=== PATIENT | female | born 2000 | race Caucasian/White ===

== ENCOUNTER 2022-02-17 15:47 | Emergency (ER) | payer OTHER ==
[2022-02-17 15:55] VITALS: BP 147/73; O2SAT 92
[2022-02-17] MEDS ORDERED: DUONEB 0.5-3 MG/3 ml Neb IH ONE ×2 (15:56→16:04)
[2022-02-17] MEDS ORDERED: PULMICORT 0.5 MG/2 ML RESPULES IH ONE (15:58)
--- NOTE | 2022-02-17 16:05 | ERPHSYRPT ---
- History of Present Illness Time Seen by Provider: 02/17/22 16:04 Source: patient Exam Limitations: no limitations Patient Subjective Stated Complaint: Pt states "I started to get short of breath last night and I have this cough. I have been taking nebulizer treatments every hour today." Triage Nursing Assessment: Pt presented alert and oriented X 3, skin pwd. Pt ambulates with a slow gait, able to speak in 5 to 6 word sentences. PT tachypneic. Physician History: Pt states "I started to get short of breath last night and I have this cough. I have been taking nebulizer treatments every hour today." Timing/Duration: yesterday Activities at Onset: none Severity of Dyspnea-Max: moderate Severity of Dyspnea-Current: moderate Possible Cause: frequent episodes Modifying Factors: Improves With: albuterol nebulizer, coughing Associated Symptoms: cough, wheezing, No fever, No loss of appetite Allergies/Adverse Reactions: salt on peanuts Allergy (Severe, Uncoded 02/17/22 15:55) Swelling Home Medications: Albuterol Sulfate [Albuterol Sulfate Hfa] 8.5 gm IH DAILY 02/17/22 [History] Cetirizine HCl [Zyrtec] 10 mg PO DAILY 02/17/22 [History] Fluticasone/Umeclidin/Vilanter [Trelegy Ellipta 200-62.5-25] 1 unit IH DAILY 02/17/22 [History] Tiotropium [place] [Spiriva Respimat] 1 unit IH DAILY 02/17/22 [History] Hx Tetanus, Diphtheria Vaccination/Date Given: No Hx Influenza Vaccination/Date Given: No Hx Pneumococcal Vaccination/Date Given: No Immunizations Up to Date: Yes Travel Risk - International Travel Have you traveled outside of the country in past 3 weeks: No - Coronavirus Screening Are you exhibiting any of the following symptoms?: Yes Symptoms: Cough: New Onset, Shortness of Breath Close contact with a COVID-19 positive Pt in past 14-21 Days: No - Vaccine Status Have you recieved a Covid-19 vaccination: Yes 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: [employer] - Vaccination Dates Date of 2cond Vaccination (if applicable): 2020 - Review of Systems Constitutional: No Fever, No Chills Eyes: No Symptoms Ears, Nose, & Throat: No Symptoms Respiratory: Cough, Dyspnea, Dyspnea on Exertion (TUCKER), Wheezing Cardiac: No Chest Pain, No Edema, No Syncope Abdominal/Gastrointestinal: No Abdominal Pain, No Nausea, No Vomiting, No Diarrhea Genitourinary Symptoms: No Dysuria Musculoskeletal: No Back Pain, No Neck Pain Skin: No Rash Neurological: No Dizziness, No Focal Weakness, No Sensory Changes Psychological: No Symptoms Endocrine: No Symptoms All Other Systems: Reviewed and Negative - Past Medical History Pertinent Past Medical History: Yes Respiratory History: Asthma - Past Surgical History Past Surgical History: Yes - Social History Smoking Status: Current every day smoker How long have you smoked: years Exposure to second hand smoke: Yes Drug Use: none Patient Lives Alone: No - Female History Hx Last Menstrual Period: 01/31/2022 Hx Now: No - Nursing Vital Signs Nursing Vital Signs: Initial Vital Signs Temperature 97.8 F 02/17/22 15:47 Pulse Rate 121 H 02/17/22 15:47 Respiratory Rate 28 H 02/17/22 15:47 Blood Pressure 147/73 02/17/22 15:47 O2 Sat by Pulse Oximetry 94 L 02/17/22 15:47 Pain Scale Pain Intensity 8 - Physical Exam General Appearance: no apparent distress, alert Eye Exam: PERRL/EOMI Neck Exam: normal inspection, supple Respiratory Exam: diminished breath sounds, accessory muscle use, wheezing Cardiovascular/Chest Exam: normal heart sounds, regular rate/rhythm Abdominal/Gastrointestinal Exam: soft, No tenderness, No distention, No mass Extremity Exam: non-tender, normal range of motion, normal inspection, no calf tenderness, no pedal edema Neurologic Exam: alert, oriented x 3, cooperative, director independent II-XII nml as tested, sensation nml, No motor deficits Skin Exam: normal color, warm, No dry SpO2 Interpretation: borderline oxygenation SpO2: 92 O2 Delivery: Room Air - Course Nursing assessment & vital signs reviewed: Yes - Radiology Exams Chest X-ray Interpretation: Reviewed by me Ordered Tests: Active Orders 24 hr Category Date Time Status Oxygen-ED Only Nasal Cannula 2 lpm Care 02/17/22 15:56 Active CHEST 2 VIEWS (PA AND LAT) Stat Exams 02/17/22 15:56 Taken CBC W DIFF Stat Lab 02/17/22 16:05 Completed CMP Stat Lab 02/17/22 16:05 Completed Respiratory Therapy Assessment DAILY RT 02/17/22 16:22 Active Medication Summary Discontinued Medications Generic Name Dose Route Start Last Admin Trade Name Yajaira PRN Reason Stop Dose Admin Albuterol/Ipratropium 3 ml 02/17/22 15:56 02/17/22 16:05 Ipratropium/Albuterol Sulfate 3 Ml Ampul.Neb IH 02/17/22 15:57 3 ml STAT ONE Administration Albuterol/Ipratropium Confirm 02/17/22 16:04 Ipratropium/Albuterol Sulfate 3 Ml Ampul.Neb Administered 02/17/22 16:05 Dose 3 ml IH .STK-MED ONE Budesonide 0.5 mg 02/17/22 15:58 02/17/22 16:05 Budesonide 0.5 Mg/2 Ml Ampul.Neb. IH 02/17/22 15:59 0.5 mg ONCE ONE Administration Ceftriaxone Sodium 1,000 mg 02/17/22 16:26 Ceftriaxone Sodium 1000 Mg Inj Vial IM 02/17/22 16:27 STAT ONE Methylprednisolone Sodium 0 mg 02/17/22 16:27 Succinate 125 mg/ Sterile IM 02/17/22 16:28 Water 2 ml STAT ONE Lab/Rad Data: Laboratory Result Diagrams 02/17/22 16:05 02/17/22 16:05 Laboratory Results 02/17/22 02/17/22 Range/Units 16:05 16:05 WBC 11.9 H (4.0-10.5) x10^3/uL RBC 4.83 (4.1-5.4) x10^6/uL Hgb 13.3 (12.0-16.0) g/dL Hct 41.5 (35-47) % MCV 85.9 (78-100) fL MCH 27.5 (26-32) pg MCHC 32.0 (32-36) g/dL RDW 14.4 H (11.5-14.0) % Plt Count 295 (150-450) x10^3/uL MPV 9.8 (7.5-11.0) fL Gran % 68.2 H (36.0-66.0) % Immature Gran % (Auto) 0.6 H (0.00-0.4) % Nucleat RBC Rel Count 0.0 (0.00-0.1) % Eos # (Auto) 0.65 H (0-0.5) x10^3/uL Immature Gran # (Auto) 0.07 H (0.00-0.03) x10^3u/L Absolute Lymphs (auto) 1.83 (1.0-4.6) x10^3/uL Absolute Monos (auto) 1.19 (0.0-1.3) x10^3/uL Absolute Nucleated RBC 0.00 (0.00-0.01) x10^3u/L Lymphocytes % 15.3 L (24.0-44.0) % Monocytes % 10.0 (0.0-12.0) % Eosinophils % 5.4 H (0.00-5.0) % Basophils % 0.5 (0.0-0.4) % Absolute Granulocytes 8.13 H (1.4-6.9) x10^3/uL Basophils # 0.06 (0-0.4) x10^3/uL Sodium 139 (137-145) mmol/L Potassium 3.9 (3.5-5.1) mmol/L Chloride 108 H (98-107) mmol/L Carbon Dioxide 23 (22-30) mmol/L Anion Gap 11.5 (5-15) MEQ/L BUN 6 L (7-17) mg/dL Creatinine 0.64 (0.52-1.04) mg/dL Estimated GFR > 60.0 ML/MIN Glucose 98 (74-106) mg/dL Calcium 9.0 (8.4-10.2) mg/dL Total Bilirubin 0.40 (0.2-1.3) mg/dL AST 19 (14-36) U/L ALT 19 (0-35) U/L Alkaline Phosphatase 86 (38-126) U/L Serum Total Protein 6.7 (6.3-8.2) g/dL Albumin 4.2 (3.5-5.0) g/dL - Progress Progress: improved Air Movement: good Blood Culture(s) Obtained: No Antibiotics given: Yes Counseled pt/family regarding: lab results, diagnosis, need for follow-up, rad results - Departure Departure Disposition: Home Clinical Impression: Bronchitis Acute asthma exacerbation Qualifiers: Asthma severity: moderate Asthma persistence: unspecified Qualified Code(s): J45.901 - Unspecified asthma with (acute) exacerbation Condition: Stable Critical Care Time: Yes Critical Care Time(excluding separately billable procedures): Critical 30-74 mins Referrals: NEHEMIAH GUTIÉRREZ, [employer]IC [Primary Care Provider] - Follow Up with PCP/3 days Instructions: Asthma, Adult (DC), Shortness of Breath (Dyspnea) (DC) Additional Instructions: Discharge/Care Plan YESIKA FRAZIER was seen on 02/17/22 in the Emergency Room. The patient was counseled regarding Diagnosis,Lab results, Imaging studies, need for follow up and when to return to the Emergency Room. Prescriptions given: Discharge Note I have spoken with the patient and/or caregivers. I have explained the patient's condition, diagnosis and treatment plan based on the information available to me at this time. I have answered the patient's and/or caregiver's questions and addressed any concerns. The patient and/or caregivers have as good understanding of the patient's diagnosis, condition and treatment plan as can be expected at this point. The vital signs have been stable. The patient's condition is stable and appropriate for discharge from the emergency department. The patient will pursue further outpatient evaluation with the primary care physician or other designated or consulting physician as outlined in the discharge instructions. The patient and/or caregivers are agreeable to this plan of care and follow-up instructions have been explained in detail. The patient and/or caregivers have received these instruction. The patient/and or caregivers are aware that any significant change in condition or worsening of symptoms should prompt an immediate return to this or the closest emergency department or call 911. YESIKA FRAZIER was seen on 02/17/22 n the Emergency Room. At that time you were treated for an emergent condition, during your visit Laboratory, Radiology and/or other procedures may have been ordered. It is very important that you follow-up with your Primary Care Physician NEHEMIAH GUTIÉRREZ within the next 24- 48 hours to review your Emergency Room visit and the final results of testing that was ordered. Some test results such as Urine Cultures, Blood Cultures, and other cultures if ordered will not be finalized for 24-48 hours. If you do not have a Primary Care Provider please call the medical records department at [phone] to obtain a copy of your results or you may sign into our patient portal to obtain these results by visiting us @ [email or web address] and completing the following steps: 1. Click on the Patient Portal link 2. Click the Patient Self Enrollment Link to complete the enrollment form and entering your 3. Once the enrollment form is completed you will receive an email with a temporary ID and password at the email address you provided. 4. Next choose a user name and password. Your user name must be at least 4 characters long and your password must be at least 4 characters long. 5. Choose a security question from the list and provide your answer to the question. If you already have signed into the Health Portal you may access your Health Care Information 04/11 by the following steps: 1. Login to our website @ [email or web address] 2. Enter your original user name and password. FAQS The [facility] Health Portal is an online tool that contains your Lab Results, Radiology Reports, Visit History, Discharge Instructions and Health Summary Lab and Radiology Results will not be available for 72 hours on the portal. The Portal is a secure site, passwords are encryted and URLs are re-written so they cannot be copied and pasted. You and authorized family members are the only ones who can access your Portal. Also there is a timeout feature that protects your information if you leave the Portal page open. If you have technical difficulty please use the Contact Us link on the page this will allow you to submit any questions you have regarding the Portal or you may contact the Medical Record Department at [phone]. Prescriptions: Azithromycin [Azithromycin 250 mg Pack] 250 mg PO UD #6 tablet Methylprednisolone Packet [Medrol Dosepack] 4 mg PO UD #21 packet
[2022-02-17 16:15] LABS: Absolute Neutrophil Ct (ANC) 8.13 x10^3/uL (1.4-6.9); Basophil (Absolute #) 0.06 x10^3/uL (0-0.4); Eosinophil % 5.4 % (0.00-5.0); Eosinophil (Absolute #) 0.65 x10^3/uL (0-0.5); Hematocrit 41.5 % (35-47); Hemoglobin 13.3 g/dL (12.0-16.0); Lymphocyte (Absolute #) 1.83 x10^3/uL (1.0-4.6); Lymphocytes % 15.3 % (24.0-44.0); Mean Cell Volume 85.9 fL (78-100); Mean Corpuscular Hemoglobin 27.5 pg (26-32); Mean Platelet Volume 9.8 fL (7.5-11.0); Monocyte (Absolute #) 1.19 x10^3/uL (0.0-1.3); Neutrophil % 68.2 % (36.0-66.0); Platelet Count 295 x10^3/uL (150-450); Red Blood Count 4.83 x10^6/uL (4.1-5.4); Red Cell Distribution Width 14.4 % (11.5-14.0); White Blood Count 11.9 x10^3/uL (4.0-10.5)
[2022-02-17 16:24] VITALS: PULSE 106
[2022-02-17] MEDS ORDERED: Rocephin 1000 MG INJ IM ONE (16:26)
[2022-02-17] MEDS ORDERED: solu-MEDROL 125 MG, Sterile H2O 10 ml 2 ML IM ONE ×2 (16:27)
[2022-02-17 16:34] LABS: ALBUMIN 4.2 g/dL (3.5-5.0); ALKALINE PHOSPHATASE 86 U/L (38-126); ANION GAP 11.5 MEQ/L (5-15); BLOOD UREA NITROGEN 6 mg/dL (7-17); CHLORIDE 108 mmol/L (98-107); Carbon Dioxide 23 mmol/L (22-30); Creatinine 1 0.64 mg/dL (0.52-1.04); EST GLOMERULAR FILTRATION RATE > 60.0 ML/MIN; Glucose 98 mg/dL (74-106); Potassium 3.9 mmol/L (3.5-5.1); SGOT/AST 19 U/L (14-36); SGPT/ALT 19 U/L (0-35); SODIUM 139 mmol/L (137-145); Total Protein 6.7 g/dL (6.3-8.2)
[2022-02-17] MEDS ORDERED: Sterile H2O 10 ml IJ ONE (16:56)
[2022-02-17] MEDS ORDERED: Rocephin 1000 MG INJ ONE (16:56)
[2022-02-17] MEDS ORDERED: XYLOCAINE 1% HCL 20 ML MDV ONE (16:56)
[2022-02-17] MEDS ORDERED: solu-MEDROL ONE (16:56)
--- NOTE | 2022-02-17 18:35 | XRAY ---
Indication: Cough and dyspnea. Comparison: None PA/lateral chest demonstrates normal heart and lungs. Bony thorax intact with mild dextroscoliosis.
== END 2022-02-17 17:14 | disposition home or self-care (01) ==
LOC: ED 15:47
DX: J40 Bronchitis, not specified as acute or chronic (principal); J45.901 Unspecified asthma with (acute) exacerbation; R06.02 Shortness of breath; R05.9 Cough, unspecified; Z72.0 Tobacco use; Z79.52 Long term (current) use of systemic steroids; Z79.899 Other long term (current) drug therapy
CPT/HCPCS: 36415; 71046; 80053; 85025; 94640; 96372; 99283; 99291; J0696; J2930; A9270-GY